=== PATIENT | female | born 1970 | race Caucasian/White ===

== ENCOUNTER 2024-06-06 09:58 | Outpatient (CLI) | payer OTHER, SELFPAY ==
--- NOTE | 2024-06-06 10:15 | MR_ITS ---
[address] [address] Phone:?[phone] Fax:?[phone] Referring Physician Information: Murali Schwarz M.D. [id number] [facility] [address] Phone:?[phone] Fax:?[phone] Patient:?Angie Lopez Wilber.Lucila.B:?1970 Sex:?Female Phone:?[phone] [facility] MRN:?[id number] Exam Date:?06/06/2024 EXAM: MRI OF THE RIGHT SECOND FINGER, WITHOUT CONTRAST CLINICAL: Right index finger pain. COMPARISONS: X-rays including 05/29/2024. TECHNICAL: Multiplanar multisequence MRI of the right second finger was obtained. SEDATION: None. CONTRAST: None. FINDINGS: There is a small ganglion cyst along the ulnar aspect of the second digit DIP joint measuring up to 8 mm in size adjacent to the skin marker in the region of interest as seen on coronal series 6.2 image 18 and axial series 4 images 8-9. Collateral ligamentous structures of the second digit appear intact. No evidence of bone marrow edema, acute fracture, subluxation or dislocation. Flexor and extensor tendons of the second digit are intact. No flexor tendon bowstringing. No significant tenosynovitis. IMPRESSION: 1. Small 8 mm ganglion cyst along the ulnar aspect of the second digit PIP joint in the region of interest. 2. No additional internal derangement identified involving the second digit. JCZ Electronically signed on 06/06/2024 2:23:00 PM by Ronnell Davis D.O.
== END 2024-06-06 09:59 | disposition home or self-care (01) ==
LOC: MRI 09:59
PROVIDERS: PCP Nurse Practitioner Family; Visit Provider Orthopaedic Surgery
DX: M79.644 Pain in right finger(s) (principal); M67.441 Ganglion, right hand
CPT/HCPCS: 73218

== ENCOUNTER 2024-06-27 06:17 | Day surgery (SDC) | payer OTHER, SELFPAY ==
[2024-06-27] VITALS (10 sets, daily range): BP systolic 115–150; BP diastolic 57–81; PULSE 62–67; RESP 16; TEMP 36.7; O2SAT 99–100; BMI 31.8
[2024-06-27] MEDS: BUPIVACAINE 0.5 %/EPI 1:200K INJECTION (07:10)
[2024-06-27] MEDS: LIDOCAINE 1%-EPI 1:100,000 20 ML INFILTRATI (07:10)
--- NOTE | 2024-06-27 07:52 | P.ORPRC_ITS ---
Procedure Note Date of procedure: 06/27/24 Procedure: Preop diagnosis: Right hand index finger mucous cyst Postop diagnosis: Right hand index finger mucous cyst Procedure: DIP joint debridement Anesthesia: Local Surgeon: Murali Schwarz MD gift shop assistant: OUMAR Travis EBL: 0 mL Complications: None Specimens: None Drains: None Preop antibiotics: None Indications: The patient has a history of right hand index finger mucous cyst. Despite appropriate nonoperative management they continue to have symptoms. Operative intervention was recommended. The risks, benefits alternatives and expected outcomes were discussed in detail. These included but were not limited to: Infection, bleeding, injury to blood vessel or nerve, venous thromboembolism. All questions were answered to their satisfaction. The patient was placed supine on the operating room table. Local anesthesia was established with a digital block using 0.5% Marcaine without epinephrine and 2% lidocaine without epinephrine. The hand was prepped and draped in usual sterile fashion. The finger was exsanguinated, a quarter-inch Ailin was used at the base of the finger as a tourniquet. A Young incision was made over the dorsum of the DIP joint. Tenotomy scissors were used for deep dissection down to the extensor mechanism. A full-thickness skin flap was elevated. The radial and ulnar side of the joint was entered with the 15 blade. The Randallpert rongeur was used to debride the corner of the middle phalanx and base of the distal phalanx to decompress the joint on both sides of the extensor mechanism. The cyst was entered from the deep side of the skin. Clear, gelatinous fluid was encountered. The cyst wall was debrided with the rongeur. A small area of the skin was buttonholed. The wound was irrigated with normal saline. It was closed with a 3-0 nylon in an interrupted fashion. Glue was used to close the buttonhole in the skin. A soft dressing was applied. The Ailin was released. Sponge and needle counts were correct x 2. The patient tolerated the procedure well, there were no apparent complications. They were sent to same day surgery in satisfactory condition. Plan: Use of the hand as tolerates. Discontinue the intraoperative dressing on postoperative day 3 and may get the wound wet as tolerates. Follow up in the office in 2 weeks for a wound check and suture removal.
== END 2024-06-27 08:14 | disposition home or self-care (01) ==
LOC: OR 06:17
PROVIDERS: PCP Nurse Practitioner Family; Visit Provider Orthopaedic Surgery
PROC: (CPT 64721; principal; 2024-06-27 07:15)
DX: M67.441 Ganglion, right hand (principal)
CPT/HCPCS: 26160; J3490

== ENCOUNTER 2024-09-07 07:23 | Outpatient (CLI) | payer BC, SELFPAY ==
--- NOTE | 2024-09-07 07:15 | CRLHL7_ITS ---
For Patients: As a result of the Century Cures Act, medical imaging exams and procedure reports are released immediately into your electronic medical record. You may view this report before your referring provider. If you have questions, please contact your health care provider. INDICATION: Mid back pain. TECHNIQUE: Noncontrast sagittal T1, T2, STIR and axial GRE sequences are provided. No comparisons. FINDINGS: The overall stature, alignment and intrinsic marrow signal of the thoracic spine is within normal limits. Thoracic cord is normal. No suspicious disc bulges or protrusions. No suspicious central canal or foraminal narrowing. IMPRESSION: Unremarkable MRI of the thoracic spine. Dictated by David Newman MD @ 09/07/2024 1:54:26 PM (Electronically Signed)
--- NOTE | 2024-09-07 08:00 | CRLHL7_ITS ---
For Patients: As a result of the Century Cures Act, medical imaging exams and procedure reports are released immediately into your electronic medical record. You may view this report before your referring provider. If you have questions, please contact your health care provider. Indication: Meningioma. Technique: Noncontrast sagittal T1, axial FLAIR, T2, diffusion, post contrast T1 weighted sequences are provided. No comparisons. 20 cc of Dotarem was administered intravenously. Findings: The ventricles, sulci and gyri are normal size, shape and contour for age. The midline structures are centrally located with no evidence of shift. There are no suspicious intra or extra-axial fluid collections. There is a enhancing smoothly marginated dural-based lesion overlying the superior right parietal lobe measuring 7 x 10 x 11 millimeters. No region of restricted diffusion or other suspicious regions of abnormal parenchymal enhancement. Expected flow voids in the cavernous carotids and basilar artery. Impression: 1. No radiographic evidence of acute intracranial abnormalities. 2. Small meningioma overlying the superior right parietal lobe resulting in no adjacent mass effect. Dictated by David Newman MD @ 09/07/2024 3:54:28 PM (Electronically Signed)
== END 2024-09-07 07:24 | disposition home or self-care (01) ==
LOC: MRI 07:24
PROVIDERS: PCP Nurse Practitioner Family; Visit Provider Nurse Practitioner Family
DX: D42.0 Neoplasm of uncertain behavior of cerebral meninges (principal); M54.9 Dorsalgia, unspecified
CPT/HCPCS: 70553; 72146; A9575

== ENCOUNTER 2025-08-14 12:03 | Outpatient (CLI) | payer BC, SELFPAY ==
--- NOTE | 2025-08-14 12:00 | CRLHL7_ITS ---
For Patients: As a result of the 21st Century Cures Act, medical imaging exams and procedure reports are released immediately into your electronic medical record. You may view this report before your referring provider. If you have questions, please contact your health care provider. NM Triple Phase bone Scan: Clinical information: 55-year-old woman. History of left knee pain. Technique: Radiopharmaceutical Tc-99m MDP 26.1 mCi IV Dynamic planer images were taken of the knees during the arterial phase. Anterior, posterior, and lateral views of the knees were obtained at the blood pool and 3 hour post-injection delayed phases. Whole-body anterior and posterior planar images were obtained on the 3 hour post-injection delayed phase images; lateral views of the head and upper thorax were obtained as well. Comparison: Left knee radiograph 07/11/2025. Findings: Photopenia in the bilateral knees in keeping with left knee replacement, and most likely representing right knee replacement. A high background of soft tissue uptake is demonstrated on arterial phase images, which can be secondary to inflammatory, vascular, or metabolic etiologies, and which partially obscures evaluation of perihardware uptake in the bilateral knees. Within these limitations, no definite focal increased perihardware uptake is demonstrated on arterial phase images. No abnormality seen on blood pool phase in the left knee. Mild perihardware uptake is seen in the right knee on blood pool phase images. Perihardware uptake seen in the bilateral knees on post-injection delayed phase images likely reactive. Bone lesions: No abnormal scintigraphic uptake on whole-body images. Degenerative appearing changes in the shoulders and ankles/feet. Excreted radiotracer in the kidneys and bladder. Impression: 1. Photopenia in the bilateral knees in keeping with left knee replacement, and most likely representing right knee replacement. 2. A high background of soft tissue uptake is demonstrated on arterial phase images, which can be secondary to inflammatory, vascular, or metabolic etiologies, and which partially obscures evaluation of perihardware uptake in the bilateral knees. Within these limitations, no definite focal increased perihardware uptake is demonstrated on arterial phase images. 3. No definite evidence of hardware loosening in the bilateral knees. 4. Mild perihardware uptake is seen in the right knee on blood pool and delayed images is likely reactive. 5. Perihardware uptake in the left knee on delayed phase images is likely reactive. Dictated by Ildefonso Collins MD @ 08/15/2025 9:16:24 AM (Electronically Signed)
== END 2025-08-14 12:04 | disposition home or self-care (01) ==
LOC: NM 12:03
PROVIDERS: PCP Nurse Practitioner Family; Visit Provider Orthopaedic Surgery Sports Medicine
DX: M25.562 Pain in left knee (principal); Z96.652 Presence of left artificial knee joint
CPT/HCPCS: 78315; A9503